=== PATIENT | male | born 1975 | race Caucasian/White ===

== ENCOUNTER 2017-08-18 21:44 | Emergency (ER) | payer MEDICAID ==
[~2017-08-18] VITALS: Ht 177.8 cm; Wt 77.1 kg
[~2017-08-18 21:44] MED LIST: LISINOPRIL 20MG20 MG PO; NORCO1 TAB PO; XANAX 1MG TABLET1 MG PO
[2017-08-18] MEDS ORDERED: HYDROCODONE/APA1 TA8 PO (21:55)
--- NOTE | 2017-08-18 22:21 | Emergency Room Report ---
History of Present Illness Time Seen by [id number] Presenting Problem in Triage Pt arrived:Walked Presenting Problem:REPORTS BLOOD IN URINE TODAY THE LAST FEW TIMES HE HAS URINATED. REPORTS LOWER ABDOMINAL PAIN AND PAIN IN THE PENILE AREA WHEN URINATING. REPORTS NO HX OF KIDNEY STONES. 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 Y Clinical Suspician of Infection? N Mental Status: 1 - Regular (Normal Baseline) Sepsis Risk:Low Sepsis Risk Have you (or family members/close friends) recently traveled outside the [place]? N If Yes, where/when: Have you had exposure to infectious disease within the past month? N TB? Other? Specify: Source patient, RN notes reviewed, old records Exam Limitations no limitations Comment pt with acute flank and lower abd pain assoc with hematuria but no penile lesions or d/c - no fever or vomiting Cardiac Chest Pain Chest pain indicative of cardiac No Timing/Duration this evening Severity moderate ALLERGIES Coded Allergies: Penicillins (08/18/17) Home Medications Reported Medications HYDROCODONE/ACETAMINOPHEN (LORTAB 5-325 (generic)) 1 TAB PO ONCE Alprazolam (Xanax 1MG) 1 MG PO BID LISINOPRIL (Lisinopril) 20 MG PO DAILY History Medical History General CAD? No Angina: No DC: No Hypertension? Yes Hyperlipidemia? No CHF? No DVT? No PE? No COPD? No Asthma? No Anemia? No GERD? No Gastric ulcers? No GI Bleed? No Hernia? No Thyroid Problems? No Hypothyroidism? No CVA? No Seizures? No Diabetes? No Renal Insuffiency? No End Stage Renal Disease? No UTI? Yes Stones? No BPH? No GB Disease: No Nephritic Syndrome? No Asplenia? No Hepatitis? No Sickle Cell Disease? No Arthritis? Yes Migraines? No Cataracts? No Glaucoma? No MRSA? No HIV? No TB? No Anxiety? Yes Depression? Yes Cancer? No More? Yes Additional hx: PTSD, OCD Immunization Hx DT/Tetanus 1-4 Years Ago Surgical Hx Previous Surgery?Y Hemorrhoid Social History Smoking Hx Smoker: Current Every Day Smoker Tobacco: Yes Type Cigarettes Packs/day < 1 Pack Alcohol Alcohol: No Drugs none Review of Systems All Other Systems Reviewed and Negative Constitutional denies fever Eyes denies drainage ENT denies: ear pain, epistaxis, throat pain. Respiratory denies cough, denies shortness of breath, denies wheezing Cardiovascular denies chest pain, denies palpitations, denies syncope Gastrointestinal see HPI, denies diarrhea, nausea, vomiting Genitourinary see HPI, hematuria. denies: dysuria, frequency, hesitancy, scrotal/testicular pain, genital lesions. Musculoskeletal denies back pain, denies joint pain, denies joint swelling, denies neck pain Skin denies rash Psychiatric/Neurological denies headache, denies seizure Physical Exam Vital Signs Vital Signs Date Time Temp Pulse Resp B/P Pulse O2 O2 Flow FiO2 Ox Delivery Rate 08/18 2332 16 08/188 82 20 148/94 98 08/18 2149 99.4 100 16 168/103 96 - WBC >12,000 or <4,000 or 10% bands? 2 or more SIRS Criteria Met? B/P:148/94 MAP:124 Creatinine >2.0? UA output<0.5ml/kg/hr for 2 hrs? Platelet count >100,000? Lactate >2.0mmol/1? INR >1.2 or PTT > than 60 sec? Evidence of Organ Dysfunction? Provider documented clinical suspician of infection? N Sepsis Criteria Count: 1 Sepsis Risk: Low Sepsis Risk General Appearance no apparent distress Eye Exam - bilateral eye PERRL, bilateral eye EOMI Ear, Nose, Throat normal ENT inspection Neck supple Respiratory Status No: respiratory distress. Cardiovascular regular rate/rhythm Peripheral Pulses Pulses normal Yes Gastrointestinal soft, no organomegaly, no pulsatile mass, no guarding, no rebound Extremities normal inspection Strength 4 Upper Ext (L), 4 Upper Ext (R), 4 Lower Ext (L), 4 Lower Ext (R) Neurologic alert, outpatient facility physical therapist II-XII nml as tested, no motor/sensory deficits Reflexes Reflexes normal No Mental status normal mood/affect Skin intact Medical Decision Making LABS/Meds/Orders Pt receiving controlled substance in ED? No Results/Orders Laboratory Tests 08/18/172199: Lactic Acid 1.5 08/18/172199: Sodium 137, Potassium 3.0 L, Chloride 100, Carbon Dioxide 31, BUN 7, Creatinine 0.9, Estimated Creat Clear 120, Estimated GFR (MDRD) 94, Glucose 102, Calcium 9.2, Total Bilirubin 0.8, AST 22, ALT 33, Alkaline Phosphatase 68, Total Protein 7.9, Albumin 4.3, Globulin 3.6 H, Albumin/Globulin Ratio 1.2, WBC 8.0, RBC 4.56 L, Hgb 13.6 L, Hct 39.6 L, MCV 87.0, RDW 13.1, Plt Count 250, MPV 7.4, Gran % 64.0, Gran # 5.1, Lymphocytes % 26.4, Monocytes % 4.3, Eosinophils % 4.7, Basophils % 0.5, Lymphocytes # 2.1, Monocytes # 0.3, Eosinophils # 0.4, Basophils # 0.0, PUBS MCHC 34.3, MCH 29.8, Urine Color YELLOW, Urine Appearance SL CLOUDY, Urine pH 6.0, Ur Specific [place] 1.015, Urine Protein NEGATIVE, Urine Ketones NEGATIVE, Urine Blood 3+ H, Urine Nitrate NEGATIVE, Urine Bilirubin NEGATIVE, Urine Urobilinogen 0.2, Ur Leukocyte Esterase NEGATIVE, Urine RBC TNTC, Urine WBC OCC, Urine Glucose NEGATIVE Current Medication Orders Sig/Maria Teresa Start time Last Medication Dose Route Stop Time Status Admin Levofloxacin 0 .STK-MED ONE 08/18 2331 DC .ROUTE Ketorolac 30 MG ONCE ONE 08/18 2330 DC 08/18 Tromethamine IV 08/18 Ketorolac 0 .STK-MED ONE 08/18 2330 DC Tromethamine .ROUTE Levofloxacin 500 MG ONCE ONE 08/18 2330 DC 08/18 PO 08/18 Phenazopyridine HCl 200 MG ONCE ONE 08/18 2330 DC 08/18 PO 08/18 Phenazopyridine HCl 0 .STK-MED ONE 08/18 2330 DC PO Ibuprofen 600 MG ONCE ONE 08/18 2245 DC 08/18 PO 08/18 Ibuprofen 0 .STK-MED ONE 08/18 2227 DC PO Sodium Chloride 1,000 ML .Q1H1M 08/18 2215 DC 08/18 IV 08/18 2315 221 Sodium Chloride 10 ML PRN PRN 08/18 2215 AC IV 08/19 2215 Sodium Chloride 1,000 ML .STK-MED ONE 08/18 2214 DC IV Sodium Chloride 10 ML PRN PRN 08/18 2200 AC IV 08/19 2158 Orders Procedure Date/time Status DIET-NOTHING BY MOUTH 08/[address] ABD & PELVIS W/O CONTRAST 08/[address] ABD/PELVIS REQ 08/18 2159 Active IV SALINE LOCK 08/18 2159 Active CULTURE, BLOOD 08/18 2159 Active LACTIC ACID 08/18 2159 Complete CBC WITH AUTO DIFF 08/18 2159 Complete CHEM 12 PROFILE 08/18 2159 Complete URINALYSIS/COMPLETE 08/18 2146 Complete XRAY/CT/US XRAY/CT/US CT abdomen, pelvis CT interpretation by discussed w/radiologist Time results known: 2321 CT Results abnormal (see report) Departure Departure Time of Disposition 2321 Disposition DC Home or Self Care(routine) Clinical Impression Primary Impression: Renal colic on left side Secondary Impressions: Hematuria Qualifiers: Hematuria type: unspecified type Qualified Code: R31.9 - Hematuria, unspecified Condition STABLE Referrals Huy CABAN,Moshe Vallejo MD,[place] Patient Instructions DI for Hematuria Additional Instructions fluids and use meds and see pcp and urology for follow up Discharge Counseling Counseled pt/family regarding diagnosis, test results, medications/RX, follow up needs Prescriptions Current Visit Scripts Ciprofloxacin HCl (Cipro 500MG TAB) 500 MG PO BID #14 TAB Phenazopyridine HCl (Pyridium) 200 MG PO TID #10 TAB ED Critical Care Critical Care No at [id number]
[2017-08-18 22:26] LABS: LYMPH # 2.1 K/mm3 (0.7-4.5); LYMPH % 26.4 % (10-50)
[2017-08-18 22:34] LABS: HEMOGLOBIN 13.6 g/dL (14.1-18.0)
[2017-08-18 22:42] LABS: URINE BILIRUBIN - DIPSTICK NEGATIVE (NEG); URINE BLOOD 3+ (NEG)
[2017-08-18] MEDS ORDERED: CIPRO 500MG TA500 MG PO (23:47)
[2017-08-18] MEDS ORDERED: PYRIDIUM200 M2 PO (23:47)
[2017-08-18 23:56] VITALS: BP 148/94
--- NOTE | 2017-08-19 07:18 | RADIOLOGY REPORT PS360 ---
CT ABD PELVIS W/O CONTRAST CLINICAL INDICATION: Lower abdominal pain PAIN ORDERING PHYSICIAN: Keya Ray MD PATIENT AGE: 41 years COMPARISON: None TECHNIQUE: Axial images obtained with sagittal and coronal reformats. PROCEDURE: Oral Contrast: None IV Contrast: None . FINDINGS: Minimal atelectatic changes in the right lung base posteriorly. Lung bases are otherwise clear. Liver, spleen, pancreas, and adrenal glands are unremarkable. Gallbladder is contracted. No radio opaque stones are evident. No renal or ureteral calculi. There is some minimal prominence of the renal collecting system on both sides nonspecific. No definite obstructing ureteral calculus. Unremarkable appearing urinary bladder. No evidence of appendicitis, diverticulitis, intestinal obstruction, or free air. No pelvic mass or abnormal fluid collection. No acute bony anomalies. There is a mild amount retained colonic feces. IMPRESSION: 1. Minimal ectasia of the renal collecting system on both sides nonspecific. No definite obstructing ureteral calculus. 2. Constipation. 3. No definite acute finding
== END 2017-08-18 23:56 | disposition home or self-care (01) ==
LOC: ER 21:44
PROVIDERS: Emergency Medicine
DX: N23 Unspecified renal colic (principal); R31.9 Hematuria, unspecified; Z88.0 Allergy status to penicillin; I10 Essential (primary) hypertension; Z79.899 Other long term (current) drug therapy; F41.8 Other specified anxiety disorders; Z72.0 Tobacco use; F43.12 Post-traumatic stress disorder, chronic

== ENCOUNTER → 2017-08-20 | Outpatient (CLI) | payer MEDICAID ==
[~2017-08-20] MED LIST changes: +CIPRO 500MG TA500 MG PO; +HYDROCODONE/APA1 TA8 PO; +PYRIDIUM200 M2 PO
[2017-08-20 22:12] LABS: AMPHETAMINES/METAMPHETAMINES NEGATIVE ng/mL (<1000)
== END ==
LOC: LAB 20:15
PROVIDERS: Nurse Practitioner Family
DX: N20.0 Calculus of kidney (principal)